=== PATIENT | female | born 2000 | race Caucasian/White ===

== ENCOUNTER 2019-07-01 15:48 | Emergency (ER) | payer OTHER ==
[~2019-07-01] VITALS: Ht 170.2 cm; Wt 55.3 kg
[2019-07-01] MEDS ORDERED: IBUPROFEN 600600 M1 PO (16:38)
[2019-07-01] MEDS ORDERED: NORCO 5-325 TA1 EAC1 PO (16:38)
[2019-07-01 17:15] VITALS: BP 112/79
== END 2019-07-01 18:06 | disposition home or self-care (01) ==
LOC: ER 15:48
DX: S62.316A Displaced fracture of base of fifth metacarpal bone, right hand, initial encounter for closed fracture (principal); W01.0XXA Fall on same level from slipping, tripping and stumbling without subsequent striking against object, initial encounter; Y93.89 Activity, other specified; Y92.89 Other specified places as the place of occurrence of the external cause; Y99.8 Other external cause status